=== PATIENT | male | born 1995 | race Hispanic/Latino ===

== ENCOUNTER 2017-10-20 09:04 | Emergency (ER) | payer OTHER ==
[~2017-10-20] VITALS: Ht 175.3 cm; Wt 108.9 kg
== END 2017-10-20 09:33 | disposition home or self-care (01) ==
LOC: FSED 09:04
DX: R42 Dizziness and giddiness (principal); T67.5XXA Heat exhaustion, unspecified, initial encounter
CPT/HCPCS: 80307; 81003; 99283